=== PATIENT | male | born 1945 | race Caucasian/White ===

== ENCOUNTER 2021-04-20 09:05 | Inpatient (IN) | payer MEDICARE, OTHER ==
[~2021-04-20] VITALS: Ht 167.6 cm; Wt 104.0 kg
[2021-04-20] MEDS ORDERED: SODIUM CHLORIDE 0.9% 1,000 ML IV ONE (09:30)
[2021-04-20 10:12] LABS: BASOPHILS % 0.8 % (0.0-2.0); EOSINOPHILS % 0.4 % (0.0-5.0); HEMATOCRIT. 45.6 % (42.0-52.0); HEMOGLOBIN. 14.7 g/dL (14.0-18.0); LYMPHOCYTES % 16.7 % (20.0-50.0); MEAN CORPUSCULAR HEMOGLOBIN 29.2 pg (28.0-32.0); MEAN CORPUSCULAR VOLUME 90.4 fL (80.0-94.0); MEAN PLATELET VOLUME 9.2 fl (7.4-10.4); MONOCYTES % 5.9 % (2.0-8.0); NEUTROPHILS % 76.2 % (40.0-76.0); PLATELET 292 x1000/uL (130-400); RED BLOOD CELL COUNT 5.04 mill/uL (4.7-6.1); RED CELL DISTRIBUTION WIDTH 14.2 % (11.6-14.6)
[2021-04-20 11:19] LABS: CHLORIDE 108 mEq/L (98-107)
[2021-04-20 11:21] LABS: PROTHROMBIN TIME 10.9 sec (9.6-11.0)
[2021-04-20] MEDS ORDERED: DEXTROSE 50% WATER 50ML SYRINGE IV PRN (13:00)
[2021-04-20] MEDS ORDERED: ACETAMINOPHEN 650MG SUPP PR PRN (13:00)
[2021-04-20] MEDS ORDERED: NA PHOS,M-B/NA PHOS,DI-BA ENEMA 118ML PR PRN (13:00)
[2021-04-20] MEDS ORDERED: ONDANSETRON HCL 4MG/2ML INJ IV PRN (13:00)
[2021-04-20] MEDS ORDERED: LORAZEPAM 2MG/ML CPJ IV PRN (13:00)
[2021-04-20] MEDS ORDERED: IPRATROPIUM/ALBUTEROL 0.5-3(2.5)MG/3ML NEB NEB PRN (13:00)
[2021-04-20] MEDS ORDERED: MORPHINE SULFATE 2 MG/ML CPJ (NOT FOR IM USE) IV PRN (13:00)
[2021-04-20] MEDS ORDERED: DIPHENHYDRAMINE 50MG/ML VIAL IV PRN (13:00)
[2021-04-20] MEDS ORDERED: NALOXONE HCL 0.4MG/ML VIAL IV PRN (13:15)
[2021-04-20] MEDS: INSULIN LISPRO 100 UNITS/ML SUBCUT SCH ×3 (13:20→22:14)
[2021-04-20] MEDS: BLOOD SUGAR DIAGNOSTIC STRIP TEST SCH ×3 (13:44→21:13)
[2021-04-20] MEDS: SODIUM CHLORIDE 0.45% 1,000 ML IV SCH ×2 (13:45→23:52)
[2021-04-20 18:35] LABS: HEMATOCRIT 39.7 % (42.0-52.0); HEMOGLOBIN 12.9 g/dL (14.0-18.0)
[2021-04-20 18:49] LABS: CREATINE KINASE 76 IU/L (39-308)
[2021-04-20 18:50] LABS: CREATINE KINASE MB FRACTION < 1.0 ng/mL (0.5-3.6)
[2021-04-20 20:01] LABS: TOTAL IRON BINDING CAPACITY 324 ug/dL (250-450)
[2021-04-20 20:10] LABS: FERRITIN 75 ng/mL (22-322)
[2021-04-20 23:00] VITALS: BP 126/76
[2021-04-20] MEDS: PANTOPRAZOLE SODIUM 40 MG/VIAL IV SCH (23:51)
[2021-04-21] VITALS: BP 126/79
[2021-04-21 00:18] LABS: VITAMIN B12 SERUM 636 pg/mL (211-911)
[2021-04-21] MEDS ORDERED: BENA40TA9 PO (00:44)
[2021-04-21] MEDS ORDERED: FURO40TA5 PO (00:44)
[2021-04-21] MEDS ORDERED: INSU300I3 SQ ×2 (00:44)
[2021-04-21] MEDS ORDERED: ASPI-1497 PO (00:44)
[2021-04-21] MEDS ORDERED: METF-416 PO (00:44)
[2021-04-21] MEDS ORDERED: PIOG15TA68 PO (00:44)
[2021-04-21 04:00] VITALS: BP 156/75
[2021-04-21] MEDS: INSULIN LISPRO 100 UNITS/ML SUBCUT SCH ×2 (06:17→12:10)
[2021-04-21] MEDS: BLOOD SUGAR DIAGNOSTIC STRIP TEST SCH ×2 (06:17→12:23)
[2021-04-21 08:00] VITALS: BP 120/42
[2021-04-21 08:28] LABS: CHLORIDE 108 mEq/L (98-107)
[2021-04-21 08:30] LABS: BASOPHILS % 0.7 % (0.0-2.0); EOSINOPHILS % 3.4 % (0.0-5.0); HEMOGLOBIN. 11.4 g/dL (14.0-18.0); LYMPHOCYTES % 26.8 % (20.0-50.0); MEAN CORPUSCULAR HEMOGLOBIN 29.3 pg (28.0-32.0); MEAN PLATELET VOLUME 9.4 fl (7.4-10.4); MONOCYTES % 7.2 % (2.0-8.0); NEUTROPHILS % 61.9 % (40.0-76.0); PLATELET 230 x1000/uL (130-400); RED BLOOD CELL COUNT 3.89 mill/uL (4.7-6.1); RED CELL DISTRIBUTION WIDTH 13.9 % (11.6-14.6)
[2021-04-21 08:43] LABS: CREATINE KINASE 91 IU/L (39-308); LDL CHOLESTEROL 102 mg/dL (5-100)
[2021-04-21 08:44] LABS: HDL CHOLESTEROL 36 mg/dL (40-59); T4 FREE 1.14 ng/dL (0.76-1.46)
[2021-04-21] MEDS: PANTOPRAZOLE SODIUM 40 MG/VIAL IV SCH (09:13)
[2021-04-21] MEDS: SODIUM CHLORIDE 0.45% 1,000 ML IV SCH (09:13)
[2021-04-21 12:00] VITALS: BP 127/57
[2021-04-21 16:00] VITALS: BP 120/56
[2021-04-21 16:21] LABS: CLARITY URINE CLEAR (CLEAR); COLOR URINE YELLOW (YELLOW); KETONES URINE NEGATIVE (NEGATIVE); LEUKOCYTE ESTERASE URINE NEGATIVE (NEGATIVE); NITRITE URINE NEGATIVE (NEGATIVE); OCCULT BLOOD URINE NEGATIVE (NEGATIVE); PH URINE 5.5 (4.5-8.0); PROTEIN URINE NEGATIVE (NEGATIVE); SPECIFIC GRAVITY URINE 1.016 (1.005-1.030); UROBILINOGEN URINE 0.2 E.U./dL (0.2-1.0)
[2021-04-21] MEDS ORDERED: PROT40 MT (16:27)
[2021-04-21 16:35] VITALS: BP 120/56
== END 2021-04-21 17:59 | disposition home or self-care (01) | DRG 393 ==
LOC: ER 09:08 → EDBEDREQTM 10:27 → EDBEDREQ 10:27 → EDBEDREQTM 11:52 → EDBEDREQSVC 14:37 → SUPCPDRO 16:51 → ENRESERV 20:12 → 7EST 22:31
PROVIDERS: ADMIT Internal Medicine; ATTEND Internal Medicine
DX: K64.9 Unspecified hemorrhoids (principal); K57.31 Diverticulosis of large intestine without perforation or abscess with bleeding; N17.9 Acute kidney failure, unspecified; I13.10 Hypertensive heart and chronic kidney disease without heart failure, with stage 1 through stage 4 chronic kidney disease, or unspecified chronic kidney disease; E11.65 Type 2 diabetes mellitus with hyperglycemia; E11.22 Type 2 diabetes mellitus with diabetic chronic kidney disease; E66.9 Obesity, unspecified; E78.00 Pure hypercholesterolemia, unspecified; E78.5 Hyperlipidemia, unspecified; I95.9 Hypotension, unspecified; Z20.822 Contact with and (suspected) exposure to COVID-19; Z96.659 Presence of unspecified artificial knee joint; E86.0 Dehydration; E87.5 Hyperkalemia; I25.10 Atherosclerotic heart disease of native coronary artery without angina pectoris; N18.9 Chronic kidney disease, unspecified; N40.0 Benign prostatic hyperplasia without lower urinary tract symptoms; Z79.4 Long term (current) use of insulin; Z79.82 Long term (current) use of aspirin; Z79.899 Other long term (current) drug therapy; Z68.37 Body mass index [BMI] 37.0-37.9, adult
CPT/HCPCS: 36415; 71045; 74176; 80053; 80061; 81003; 82270; 82550; 82553; 82607; 82728; 82962; 83036; 83540; 83550; 84132; 84439; 84443; 84484; 85014; 85018; 85025; 85044; 86850; 86900; 87426; 93005; 93306; 93970; 97162; 99291; C9113; J1815; J7030